=== PATIENT | male | born 1945 | race Two or more races ===

== ENCOUNTER 2017-01-06 07:57 | Emergency (ER) | payer BC ==
[2017-01-06] MEDS ORDERED: ASPIRIN 81 MG CHEWABLE TAB PO ONE (08:08)
[2017-01-06] MEDS ORDERED: ASPIRIN 81 MG CHEWABLE TAB ONE (08:08)
--- NOTE | 2017-01-06 08:12 | CPEKG ---
Heart Rate: 64 RR Interval: 938 P-R Interval: 180 QRSD Interval: 106 QT Interval: 448 QTC Interval: 463 P Lafferty: 42 QRS Lafferty: 33 T Wave Lafferty: 36 EKG Severity - NORMAL ECG - EKG Impression: SINUS RHYTHM Electronically Signed By: Floyd Pollack 06-Jan-2017 08:16:42
--- NOTE | 2017-01-06 08:15 | EDPHY ---
H & P Stated Complaint: Sharp L anterior chest pain and SOB after colonoscopy approx. 0753 today. Time Seen by Provider: 01/06/17 08:07 HPI/ROS: CHIEF COMPLAINT: Chest pain HISTORY OF PRESENT ILLNESS: Patient is a 71-year-old relatively healthy man who comes to the emergency department complaining of left-sided chest pain. He received a colonoscopy this morning and when he awoke from the sedation began complaining of left-sided lower chest/upper abdominal pain. He states that they pushed on his belly and he expelled a lot of flatus. He does not have any history of cardiac disease. He had a negative stress test a few years ago. He denies shortness of breath. He denies fevers. His pain does not radiate. He is not diaphoretic. He is slightly nauseous. REVIEW OF SYSTEMS: Constitutional: denies: chills, fever, recent illness, recent injury EENTM: denies: blurred vision, double vision, nose congestion Respiratory: denies: cough, shortness of breath Cardiac: See HPI Gastrointestinal/Abdominal: denies: abdominal pain, diarrhea, nausea, vomiting, blood streaked stools Genitourinary: denies: dysuria, frequency, hematuria, pain Musculoskeletal: denies: joint pain, muscle pain Skin: denies: lesions, rash, jaundice, bruising Neurological: denies: headache, numbness, paresthesia, tingling, dizziness, weakness Hematologic/Lymphatic: denies: blood clots, easy bleeding, easy bruising Immunologic/allergic: denies: HIV/AIDS, transplant EXAM: GENERAL: Well-appearing, well-nourished and in no acute distress. HEAD: Atraumatic, normocephalic. EYES: Pupils equal round and reactive to light, extraocular movements intact, sclera anicteric, conjunctiva are normal. ENT: TMs normal, nares patent, oropharynx clear without exudates. Moist mucous membranes. NECK: Normal range of motion, supple without lymphadenopathy or JVD. LUNGS: Breath sounds clear to auscultation bilaterally and equal. No wheezes rales or rhonchi. HEART: Regular rate and rhythm without murmurs, rubs or gallops. ABDOMEN: Soft, nontender, normoactive bowel sounds. No guarding, no rebound. No masses appreciated. BACK: No CVA tenderness, no spinal tenderness, step-offs or deformities EXTREMITIES: Normal range of motion, no pitting or edema. No clubbing or cyanosis. NEUROLOGICAL: Cranial nerves II through XII grossly intact. Normal speech, normal gait. 5/5 strength, normal movement in all extremities, normal sensation PSYCH: Normal mood, normal affect. SKIN: Warm, dry, normal turgor, no visible rashes or lesions. Source: Patient Exam Limitations: No limitations - Personal History Current Tetanus Diphtheria and Acellular Pertussis (TDAP): Yes Tetanus Vaccine Date: within 10 years - Medical/Surgical History Hx Asthma: No Hx Chronic Respiratory Disease: No Hx Diabetes: No Hx Cardiac Disease: No Hx Renal Disease: No Hx Cirrhosis: No Hx Alcoholism: No Hx HIV/AIDS: No Hx Splenectomy or Spleen Trauma: No Other PMH: GERD, ulcers, TKA, C3-4 fusion, appendectomy, cholecystectomy, hypothyoidism - Family History Significant Family History: No pertinent family hx - Social History Smoking Status: Never smoked Alcohol Use: Sober Drug Use: None Constitutional: Initial Vital Signs Temperature (C) 36.4 C 01/06/17 07:57 Heart Rate 64 01/06/17 07:57 Respiratory Rate 18 01/06/17 07:57 Blood Pressure 146/86 H 01/06/17 07:57 O2 Sat (%) 100 01/06/17 07:57 O2 Delivery Mode Room Air O2 (L/minute) 4 Allergies/Adverse Reactions: NSAIDS (Non-Steroidal Anti-Inflamma Allergy (Unknown, Verified 01/06/17 08:12) ULCERS Home Medications: Medication Instructions Recorded Cholestyramine Packet 01/06/17 Ferosul 01/06/17 Hydrocodone/Acetaminophen 01/06/17 Multivitamin 01/06/17 Omeprazole 01/06/17 Protonix 01/06/17 Tums 500MG (*) 01/06/17 Vitamin C 01/06/17 Medical Decision Making - Diagnostics EKG Interpretation: An EKG obtained and was read and documented in trace view. Please see trace view for full reading and report. Sinus rhythm, no acute ischemic changes Imaging Results: Imaging Impressions Chest X-Ray 01/06/17 08:13 Impression: 1. No active cardiopulmonary disease seen. 2. Mild compression of T12 that is probably old. If indicated, consider DEXA scan at some point to evaluate underlying bone mineral density. Chest/Thorax CTA 01/06/17 08:36 Impression: 1. No evidence of thrombopulmonary embolic disease. 2. No evidence of perforated viscus or splenic injury. 3. Clear lungs. Minimal underlying interstitial lung disease. Findings discussed with Emergency Department physician, Floyd Pollack, on January 06, 2017 at 9:20 a.m. Imaging: Discussed imaging studies w/ boiler riveter Radiologist ED Course/Re-evaluation: 9:20 a.m. we discussed the test results. His central stores attendant was present as well. The patient states that he feels completely better after getting up and moving around and passing flatus. His tests are reassuring. I did offer a repeat troponin but he is eager to go. His granddaughter is giving at [facility]. They are going to go there. He states that he will be in the hospital should any of his symptoms return. He understands that we have not completely ruled out a small heart attack. Differential Diagnosis: Partial list of the Differential diagnosis considered include but were not limited to; procedural complication, bowel gas, acute coronary disease and although unlikely based on the history and physical exam, I also considered arrhythmia, pneumothorax, perforation. I discussed these differential diagnoses and the plan with the patient as well as the usual and expected course. The patient understands that the diagnosis is provisional and that in medicine we are not always correct and that further workup is often warranted. Usual and customary warnings were given. All of the patient's questions were answered. The patient was instructed to return to the emergency department should the symptoms at all worsen or return, otherwise to followup with the physician as we discussed. - Data Points Laboratory Results: Laboratory Results 01/06/17 08:15 01/06/17 08:15 01/06/17 01/06/17 01/06/17 08:15 08:15 08:15 WBC 9.76 10^3/uL H 10^3/uL (3.80-9.50) RBC 3.99 10^6/uL L 10^6/uL (4.40-6.38) Hgb 12.2 g/dL L g/dL (13.7-17.5) Hct 36.9 % L % (40.0-51.0) MCV 92.5 fL fL (81.5-99.8) MCH 30.6 pg pg (27.9-34.1) MCHC 33.1 g/dL g/dL (32.4-36.7) RDW 14.5 % % (11.5-15.2) Plt Count 295 10^3/uL 10^3/uL (150-400) MPV 10.3 fL fL (8.7-11.7) Neut % (Auto) 75.0 % H % (39.3-74.2) Lymph % (Auto) 14.1 % L % (15.0-45.0) [place] % (Auto) 9.3 % % (4.5-13.0) Eos % (Auto) 1.0 % % (0.6-7.6) Baso % (Auto) 0.2 % L % (0.3-1.7) Nucleat RBC Rel Count 0.0 % % (0.0-0.2) Absolute Neuts (auto) 7.31 10^3/uL H 10^3/uL (1.70-6.50) Absolute Lymphs (auto) 1.38 10^3/uL 10^3/uL (1.00-3.00) Absolute Monos (auto) 0.91 10^3/uL H 10^3/uL (0.30-0.80) Absolute Eos (auto) 0.10 10^3/uL 10^3/uL (0.03-0.40) Absolute Basos (auto) 0.02 10^3/uL 10^3/uL (0.02-0.10) Absolute Nucleated RBC 0.00 10^3/uL 10^3/uL (0-0.01) Immature Gran % 0.4 % % (0.0-1.1) Immature Gran # 0.04 10^3/uL 10^3/uL (0.00-0.10) PT 13.0 SEC SEC (12.0-15.0) INR 1.01 (0.83-1.16) APTT 30.0 SEC SEC (23.0-38.0) D-Dimer 1.20 ug/mLFEU H ug/mLFEU (0.00-0.50) Sodium 140 mEq/L mEq/L (134-144) Potassium 3.7 mEq/L mEq/L (3.5-5.2) Chloride 103 mEq/L mEq/L (97-110) Carbon Dioxide 26 mEq/l mEq/l (22-31) Anion Gap 11 mEq/L mEq/L (8-16) BUN 8 mg/dL mg/dL (7-23) Creatinine 0.7 mg/dL mg/dL (0.7-1.3) Estimated GFR > 60 Glucose 90 mg/dL mg/dL (70-100) Calcium 9.0 mg/dL mg/dL (8.5-10.4) Total Bilirubin 1.0 mg/dL mg/dL (0.1-1.4) Conjugated Bilirubin 0.3 mg/dL mg/dL (0.0-0.5) Unconjugated Bilirubin 0.7 mg/dL mg/dL (0.0-1.1) AST 18 IU/L IU/L (17-59) ALT 25 IU/L IU/L (21-72) Alkaline Phosphatase 64 IU/L IU/L (38-126) Troponin I < 0.012 ng/mL ng/mL (0-0.034) Total Protein 6.8 g/dL g/dL (6.3-8.2) Albumin 3.4 g/dL L g/dL (3.5-5.0) Lipase 60.0 IU/L IU/L (23-300) Medications Given: Discontinued Medications Aspirin (Aspirin) 324 mg PO EDNOW ONE Stop: 01/06/17 08:09 Last Admin: 01/06/17 08:08 Dose: 324 mg Hydromorphone HCl (Dilaudid) 0.5 mg IVP EDNOW ONE Stop: 01/06/17 08:45 Last Admin: 01/06/17 08:47 Dose: 0.5 mg Departure - Departure Disposition: Home, Routine, Self-Care Clinical Impression: Chest pain Qualifiers: Chest pain type: unspecified Qualified Code(s): R07.9 - Chest pain, unspecified Condition: Fair Instructions: Chest Pain (ED) Referrals: Shorty Fernández MD [Primary Care Provider] - As per Instructions
[2017-01-06 08:22] LABS: % IMMATURE GRANULYOCYTES 0.4 % (0.0-1.1); ABSOLUTE IMMATURE GRANULOCYTES 0.04 10^3/uL (0.00-0.10); ADD DIFF? NO; ADD MORPH? NO; ADD SCAN? NO; ATYPICAL LYMPHOCYTE FLAG 20 (0-99); FRAGMENT RBC FLAG 0 (0-99); HEMATOCRIT 36.9 % (40.0-51.0); HEMOGLOBIN 12.2 g/dL (13.7-17.5); LEFT SHIFT FLG 0 (0-99); LIPEMIA HEMOLYSIS FLAG 80 (0-99); MEAN CELL HEMOGLOBIN 30.6 pg (27.9-34.1); MEAN CELL HEMOGLOBIN CONCENTR. 33.1 g/dL (32.4-36.7); MEAN CELL VOLUME 92.5 fL (81.5-99.8); MEAN PLATELET VOLUME 10.3 fL (8.7-11.7); PLATELET CLUMPS FLAG 0 (0-99); PLATELET COUNT 295 10^3/uL (150-400); RED BLOOD CELL COUNT 3.99 10^6/uL (4.40-6.38); RED CELL DISTRIBUTION WIDTH 14.5 % (11.5-15.2)
[2017-01-06 08:31] LABS: INR 1.01 (0.83-1.16)
[2017-01-06 08:35] LABS: ALANINE AMINOTRANSFERASE 25 IU/L (21-72); ALBUMIN 3.4 g/dL (3.5-5.0); ALKALINE PHOSPHATASE 64 IU/L (38-126); ANION GAP 11 mEq/L (8-16); ASPARTATE AMINOTRANSFERASE 18 IU/L (17-59); BILIRUBIN-CONJUGATED 0.3 mg/dL (0.0-0.5); BILIRUBIN-UNCONJUGATED 0.7 mg/dL (0.0-1.1); CARBON DIOXIDE 26 mEq/l (22-31); CHLORIDE 103 mEq/L (97-110); CREATININE 0.7 mg/dL (0.7-1.3); GLOMERULAR FILTRATION RATE > 60; GLUCOSE 90 mg/dL (70-100); POTASSIUM 3.7 mEq/L (3.5-5.2); SODIUM 140 mEq/L (134-144); TOTAL PROTEIN 6.8 g/dL (6.3-8.2)
[2017-01-06] MEDS ORDERED: IOPAMIDOL (ISOVUE 370) 100 ML BTL IV ONE (08:42)
[2017-01-06] MEDS ORDERED: HYDROmorphONE/DILAUDID 1 MG/ML SYR IVP ONE (08:44)
[2017-01-06 08:45] LABS: TROPONIN I < 0.012 ng/mL (0-0.034)
[2017-01-06 09:14] VITALS: RESP 16
[2017-01-06 09:47] VITALS: BP 158/89; PULSE 70; TEMP 97.5; O2SAT 96
== END 2017-01-06 09:37 | disposition home or self-care (01) ==
LOC: CED 07:57
DX: R07.9 Chest pain, unspecified (principal)
CPT/HCPCS: 71020-PO; 71275-PO; 80048-PO; 80076-PO; 83690-PO; 84484-PO; 85025-PO; 85378-PO; 85610-PO; 85730-PO; 96374; J1170; Q9967